=== PATIENT | male | born 1945 | race Caucasian/White ===

== ENCOUNTER 2021-04-29 09:52 | Inpatient (IN) | payer MEDICARE, OTHER ==
[~2021-04-29] VITALS: Ht 182.9 cm; Wt 72.8 kg
[2021-04-29] MEDS ORDERED: PANTOPRAZOLE 40 MG/10 ML VIAL INJ IV ONE (10:30)
[2021-04-29] MEDS ORDERED: ONDANSETRON HCL 4 MG/2 ML VIAL IV ONE (10:30)
[2021-04-29] MEDS ORDERED: MORPHINE SULFATE 4 MG/ML SYR/VIAL IV ONE (10:30)
[2021-04-29 11:39] LABS: Albumin 3.3 g/dL (3.4-5.0); BUN/Creatinine Ratio 13.9; Bilirubin, Total 0.6 mg/dL (0.2-1.0); Calcium 9.3 mg/dL (8.5-10.1)
[2021-04-29 13:31] LABS: Basophils # (auto) 0 10 ^3/uL (0-0.2); Basophils % (auto) 0.3 % (0.0-2.0); Eosinophils # (auto) 0 10 ^3/uL (0-0.8); Red Cell Distribution Width 15.1 % (11.8-14.3)
[2021-04-29 13:32] LABS: Eosinophils % (auto) 0.1 % (0.0-7.0); Hematocrit 49.6 % (41.0-53.0); Hemoglobin 16.6 g/dL (13.5-17.5); Lymphocytes # (auto) 0.3 10 ^3/uL (0.4-5.4); Lymphocytes % (auto) 2.3 % (10.0-50.0); Mean Corpuscular Hemoglobin 26.7 pg (28.0-32.0); Mean Corpuscular Hgb Conc. 33.5 g/dL (32.0-36.0); Mean Corpuscular Volume 79.8 fL (80.0-100.0); Monocytes # (auto) 0.6 10 ^3/uL (0-1.3); Monocytes % (auto) 5.3 % (0.0-12.0); Neutrophils # (auto) 10.3 10 ^3/uL (1.6-8.6); Red Blood Cells 6.21 10^6/uL (4.5-5.90); White Blood Cell 11.1 10^3/uL (4.4-10.8)
[2021-04-29] MEDS ORDERED: IOHEXOL 300 MG/ML 100ML BOTTLE IJ ONE (13:35)
[2021-04-29] MEDS ORDERED: metroNIDAZOLE 500MG/100ML 100 ML IV ONE (16:00)
[2021-04-29] MEDS ORDERED: PIPERACILLIN-TAZOB 3.375GM 100 ML IV ONE (16:00)
[2021-04-29 16:56] LABS: INR 1.06 (0.9-1.15); Partial Thromboplastin Time 26.8 sec (23.0-31.2)
[2021-04-29] MEDS ORDERED: MORPHINE SULFATE INJECTION 2 MG/ML SYRG IV PRN (17:00)
[2021-04-29] MEDS ORDERED: ONDANSETRON HCL 4 MG/2 ML VIAL IV PRN (17:00)
[2021-04-29] MEDS ORDERED: NITROGLYCERIN 0.4 MG SL TAB SL PRN (17:00)
[2021-04-29] MEDS ORDERED: metroNIDAZOLE 500MG/100ML 100 ML IV SCH (22:00)
[2021-04-29] MEDS: cefTRIAXone 1GM/50ML D5W 50 ML IV SCH (22:43)
[2021-04-29] MEDS: metroNIDAZOLE 500MG/100ML 100 ML IV SCH (22:44)
[2021-04-29] MEDS: POTASSIUM CHLORIDE 20 MEQ in D5W/LACTATED RINGERS 1,000 ML IV SCH (23:22)
[2021-04-30] MEDS: POTASSIUM CHLORIDE 20 MEQ in D5W/LACTATED RINGERS 1,000 ML IV SCH ×3 (02:36→22:48)
[2021-04-30] MEDS: metroNIDAZOLE 500MG/100ML 100 ML IV SCH ×3 (05:54→21:17)
[2021-04-30 06:06] LABS: Basophils # (auto) 0 10 ^3/uL (0-0.2); Basophils % (auto) 0.2 % (0.0-2.0); Eosinophils # (auto) 0 10 ^3/uL (0-0.8); Eosinophils % (auto) 0.2 % (0.0-7.0); Hematocrit 49.9 % (41.0-53.0); Lymphocytes # (auto) 0.8 10 ^3/uL (0.4-5.4); Lymphocytes % (auto) 5.9 % (10.0-50.0); Mean Corpuscular Hemoglobin 27.2 pg (28.0-32.0); Mean Corpuscular Hgb Conc. 34.1 g/dL (32.0-36.0); Mean Corpuscular Volume 79.7 fL (80.0-100.0); Monocytes # (auto) 1.2 10 ^3/uL (0-1.3); Monocytes % (auto) 9.3 % (0.0-12.0); Neutrophils % (auto) 84.4 % (37.0-80.0); Nucleated Red Blood Cells % 0.1 %; Red Blood Cells 6.26 10^6/uL (4.5-5.90); Red Cell Distribution Width 15.2 % (11.8-14.3)
[2021-04-30 06:23] LABS: Anion Gap 7 (5-15); BUN/Creatinine Ratio 21.3; Blood Urea Nitrogen 19 mg/dL (7-18); Calcium 8.5 mg/dL (8.5-10.1); Carbon Dioxide 21 mmol/L (21-32); Chloride 107 mmol/L (98-107); GFR African American 107 mL/min; GFR Non-African American 88 mL/min; Glucose 113 mg/dL (74-106); Potassium 4.6 mmol/L (3.5-5.1); Sodium 135 mmol/L (136-145)
[2021-04-30 06:27] LABS: Alanine Aminotransferase 14 U/L (16-61); Alkaline Phosphatase 78 U/L (45-117); Aspartate Aminotransferase 23 U/L (15-37); Bilirubin, Total 0.4 mg/dL (0.2-1.0); Total Protein 6.8 g/dL (6.4-8.2)
[2021-04-30] MEDS ORDERED: cefTRIAXone 1GM/50ML D5W 50 ML IV SCH (09:00)
[2021-04-30] MEDS: cefTRIAXone 1GM/50ML D5W 50 ML IV SCH (09:12)
[2021-04-30] MEDS: PANTOPRAZOLE 40 MG/10 ML VIAL INJ IV SCH (09:29)
[2021-04-30 13:19] VITALS: BP 135/75
[2021-04-30 16:48] VITALS: BP 134/78
[2021-04-30 22:00] VITALS: BP 131/91
[2021-05-01 05:00] VITALS: BP 122/73
[2021-05-01] MEDS: metroNIDAZOLE 500MG/100ML 100 ML IV SCH ×3 (05:28→21:12)
[2021-05-01 05:31] LABS: Basophils # (auto) 0 10 ^3/uL (0-0.2); Basophils % (auto) 0.4 % (0.0-2.0); Eosinophils # (auto) 0.1 10 ^3/uL (0-0.8); Eosinophils % (auto) 0.8 % (0.0-7.0); Hematocrit 42.8 % (41.0-53.0); Hemoglobin 14.5 g/dL (13.5-17.5); Lymphocytes # (auto) 1.1 10 ^3/uL (0.4-5.4); Mean Corpuscular Hemoglobin 27.1 pg (28.0-32.0); Mean Corpuscular Hgb Conc. 33.9 g/dL (32.0-36.0); Mean Corpuscular Volume 79.8 fL (80.0-100.0); Monocytes # (auto) 0.9 10 ^3/uL (0-1.3); Monocytes % (auto) 8.1 % (0.0-12.0); Neutrophils # (auto) 8.8 10 ^3/uL (1.6-8.6); Neutrophils % (auto) 80.7 % (37.0-80.0); Red Blood Cells 5.36 10^6/uL (4.5-5.90); Red Cell Distribution Width 15.4 % (11.8-14.3); White Blood Cell 10.9 10^3/uL (4.4-10.8)
[2021-05-01] MEDS: POTASSIUM CHLORIDE 20 MEQ in D5W/LACTATED RINGERS 1,000 ML IV SCH ×3 (05:31→20:17)
[2021-05-01 06:02] LABS: Potassium 3.9 mmol/L (3.5-5.1)
[2021-05-01 06:09] LABS: Albumin 2.6 g/dL (3.4-5.0); Bilirubin, Total 0.4 mg/dL (0.2-1.0); Calcium 8.5 mg/dL (8.5-10.1); Total Protein 5.9 g/dL (6.4-8.2)
[2021-05-01] MEDS: PANTOPRAZOLE 40 MG/10 ML VIAL INJ IV SCH (08:56)
[2021-05-01] MEDS: cefTRIAXone 1GM/50ML D5W 50 ML IV SCH (08:56)
[2021-05-01 09:00] VITALS: BP 129/63
[2021-05-01] MEDS ORDERED: EPINEPHrine HCL 1 MG/10 ML SYRG ONE (09:25)
[2021-05-01] MEDS ORDERED: ERGOCALCIFEROL 50,000 UNIT(1.25MG) CAP PO SCH (10:00)
[2021-05-01] MEDS ORDERED: BUPIVACAINE 0.25% INJ 50ML VIAL ONE (12:24)
[2021-05-01] MEDS ORDERED: LIDOCAINE 1% HCL (LOCAL ANESTH.) INJ 20ML MDV ONE (12:24)
[2021-05-01] MEDS ORDERED: ceFAZolin 1GM/50ML 100 ML IV ONE (12:26)
[2021-05-01] MEDS ORDERED: fentaNYL CITRATE 100 MCG/2 ML VL ONE (12:30)
[2021-05-01] MEDS ORDERED: MIDAZOLAM HCL 2MG/2ML 2ml VIAL (1mg/ml) ONE (12:31)
[2021-05-01] MEDS ORDERED: ROCURONIUM 10MG/ML 10ML VIAL IV ONE (12:31)
[2021-05-01] MEDS ORDERED: PROPOFOL 10 MG/ML 20 ML IV ONE (12:36)
[2021-05-01 13:00] VITALS: BP 125/70
[2021-05-01] MEDS ORDERED: NEOSTIGMINE 1 MG/ML INJ (10mg/10ML VIAL) ONE (14:15)
[2021-05-01] MEDS ORDERED: GLYCOPYRROLATE 0.2 MG/ML 1ML VIAL ONE (14:15)
[2021-05-01] MEDS ORDERED: ONDANSETRON HCL 4 MG/2 ML VIAL ONE (14:20)
[2021-05-01] MEDS ORDERED: HYDROmorphone HCL 2 MG/ML VL IV PRN (14:30)
[2021-05-01] MEDS ORDERED: ONDANSETRON HCL 4 MG/2 ML VIAL IV PRN (14:30)
[2021-05-01 16:09] VITALS: BP 120/68
[2021-05-01] MEDS: MORPHINE SULFATE INJECTION 2 MG/ML SYRG IV PRN (20:15)
[2021-05-01 22:00] VITALS: BP 119/51
[2021-05-02 05:00] VITALS: BP 120/68
[2021-05-02] MEDS: metroNIDAZOLE 500MG/100ML 100 ML IV SCH ×3 (05:30→21:56)
[2021-05-02] MEDS: cefTRIAXone 1GM/50ML D5W 50 ML IV SCH (08:46)
[2021-05-02 09:08] VITALS: BP 145/68
[2021-05-02] MEDS: MORPHINE SULFATE INJECTION 2 MG/ML SYRG IV PRN (10:30)
[2021-05-02 11:26] LABS: BUN/Creatinine Ratio 9.2; Potassium 3.9 mmol/L (3.5-5.1)
[2021-05-02 12:40] LABS: Basophils # (auto) 0 10 ^3/uL (0-0.2); Basophils % (auto) 0.6 % (0.0-2.0); Eosinophils # (auto) 0.1 10 ^3/uL (0-0.8); Eosinophils % (auto) 1.4 % (0.0-7.0); Hematocrit 39.4 % (41.0-53.0); Hemoglobin 13.5 g/dL (13.5-17.5); Lymphocytes # (auto) 0.8 10 ^3/uL (0.4-5.4); Lymphocytes % (auto) 11.2 % (10.0-50.0); Mean Corpuscular Hemoglobin 27.4 pg (28.0-32.0); Mean Corpuscular Hgb Conc. 34.3 g/dL (32.0-36.0); Monocytes # (auto) 0.6 10 ^3/uL (0-1.3); Monocytes % (auto) 9.1 % (0.0-12.0); Neutrophils # (auto) 5.5 10 ^3/uL (1.6-8.6); Neutrophils % (auto) 77.7 % (37.0-80.0); Red Blood Cells 4.93 10^6/uL (4.5-5.90); Red Cell Distribution Width 14.9 % (11.8-14.3); White Blood Cell 7.1 10^3/uL (4.4-10.8)
[2021-05-02 13:00] VITALS: BP 126/81
[2021-05-02 17:10] VITALS: BP 121/73
[2021-05-02] MEDS: POTASSIUM CHLORIDE 20 MEQ in D5W/LACTATED RINGERS 1,000 ML IV SCH (17:59)
[2021-05-02 22:00] VITALS: BP 139/73
[2021-05-03] MEDS: POTASSIUM CHLORIDE 20 MEQ in D5W/LACTATED RINGERS 1,000 ML IV SCH ×2 (01:32→13:32)
[2021-05-03 05:00] VITALS: BP 139/81
[2021-05-03 05:36] LABS: Basophils # (auto) 0 10 ^3/uL (0-0.2); Basophils % (auto) 0.8 % (0.0-2.0); Eosinophils # (auto) 0.2 10 ^3/uL (0-0.8); Eosinophils % (auto) 3.4 % (0.0-7.0); Hemoglobin 12.1 g/dL (13.5-17.5); Lymphocytes # (auto) 1.1 10 ^3/uL (0.4-5.4); Lymphocytes % (auto) 17.2 % (10.0-50.0); Mean Corpuscular Hemoglobin 27.6 pg (28.0-32.0); Mean Corpuscular Hgb Conc. 34.6 g/dL (32.0-36.0); Mean Corpuscular Volume 79.7 fL (80.0-100.0); Monocytes # (auto) 0.7 10 ^3/uL (0-1.3); Monocytes % (auto) 10.5 % (0.0-12.0); Neutrophils # (auto) 4.3 10 ^3/uL (1.6-8.6); Neutrophils % (auto) 68.1 % (37.0-80.0); Red Blood Cells 4.39 10^6/uL (4.5-5.90); Red Cell Distribution Width 14.9 % (11.8-14.3); White Blood Cell 6.3 10^3/uL (4.4-10.8)
[2021-05-03 05:55] LABS: Potassium 3.5 mmol/L (3.5-5.1)
[2021-05-03 06:00] LABS: BUN/Creatinine Ratio 9.5; Calcium 7.8 mg/dL (8.5-10.1)
[2021-05-03] MEDS: MORPHINE SULFATE INJECTION 2 MG/ML SYRG IV PRN ×3 (06:33→21:36)
[2021-05-03] MEDS: metroNIDAZOLE 500MG/100ML 100 ML IV SCH ×3 (06:33→21:36)
[2021-05-03 09:00] VITALS: BP 114/73
[2021-05-03] MEDS: cefTRIAXone 1GM/50ML D5W 50 ML IV SCH (09:49)
[2021-05-03] MEDS: PANTOPRAZOLE 40 MG/10 ML VIAL INJ IV SCH (09:49)
[2021-05-03 13:00] VITALS: BP 128/75
[2021-05-03 17:00] VITALS: BP 135/74
[2021-05-03 22:00] VITALS: BP 130/71
[2021-05-04 05:00] VITALS: BP 136/76
[2021-05-04] MEDS: metroNIDAZOLE 500MG/100ML 100 ML IV SCH ×3 (06:20→22:36)
[2021-05-04 06:44] LABS: Basophils # (auto) 0 10 ^3/uL (0-0.2); Basophils % (auto) 0.6 % (0.0-2.0); Eosinophils # (auto) 0.3 10 ^3/uL (0-0.8); Eosinophils % (auto) 4.6 % (0.0-7.0); Hemoglobin 12.2 g/dL (13.5-17.5); Mean Corpuscular Hemoglobin 27.5 pg (28.0-32.0); Mean Corpuscular Hgb Conc. 34.9 g/dL (32.0-36.0); Monocytes # (auto) 0.8 10 ^3/uL (0-1.3); Monocytes % (auto) 11.8 % (0.0-12.0); Neutrophils # (auto) 4.3 10 ^3/uL (1.6-8.6); Nucleated Red Blood Cells % 0.1 %; Red Blood Cells 4.43 10^6/uL (4.5-5.90); Red Cell Distribution Width 14.5 % (11.8-14.3); White Blood Cell 6.4 10^3/uL (4.4-10.8)
[2021-05-04 06:56] LABS: Albumin 2.3 g/dL (3.4-5.0); Potassium 3.5 mmol/L (3.5-5.1)
[2021-05-04 06:58] LABS: BUN/Creatinine Ratio 8.3
[2021-05-04 07:00] LABS: Bilirubin, Total 0.4 mg/dL (0.2-1.0); Total Protein 5.4 g/dL (6.4-8.2)
[2021-05-04] MEDS: MORPHINE SULFATE INJECTION 2 MG/ML SYRG IV PRN ×2 (08:04→22:36)
[2021-05-04] MEDS: cefTRIAXone 1GM/50ML D5W 50 ML IV SCH (08:04)
[2021-05-04 09:00] VITALS: BP 134/70
[2021-05-04] MEDS: PANTOPRAZOLE 40 MG/10 ML VIAL INJ IV SCH (09:00)
[2021-05-04] MEDS ORDERED: ACETAMINOPHEN 500 MG TAB PO PRN (12:15)
[2021-05-04 13:00] VITALS: BP 134/77
[2021-05-04 17:00] VITALS: BP 125/72
[2021-05-04 22:00] VITALS: BP 135/85
[2021-05-05 05:00] VITALS: BP 144/77
[2021-05-05] MEDS: metroNIDAZOLE 500MG/100ML 100 ML IV SCH ×2 (06:42→13:56)
[2021-05-05] MEDS: MORPHINE SULFATE INJECTION 2 MG/ML SYRG IV PRN (07:01)
[2021-05-05 09:00] VITALS: BP 120/74
[2021-05-05] MEDS: PANTOPRAZOLE 40 MG/10 ML VIAL INJ IV SCH (09:38)
[2021-05-05] MEDS: cefTRIAXone 1GM/50ML D5W 50 ML IV SCH (09:38)
== END 2021-05-05 16:10 | DRG 351 ==
LOC: EDSEX 09:52 → ER 09:52 → EDBD 09:52 → TELE 16:58 → TELE-WESTW 04-30 12:21
PROVIDERS: ADMIT Nurse Practitioner Acute Care; ATTEND Internal Medicine
PROC: 0YQ60ZZ Repair Left Inguinal Region, Open Approach (ICD-10-PCS; principal; 2021-05-01 12:29)
DX: K40.30 Unilateral inguinal hernia, with obstruction, without gangrene, not specified as recurrent (principal); K92.1 Melena; R73.9 Hyperglycemia, unspecified; I44.7 Left bundle-branch block, unspecified; I71.4 Abdominal aortic aneurysm, without rupture; F12.90 Cannabis use, unspecified, uncomplicated; F17.210 Nicotine dependence, cigarettes, uncomplicated; I25.10 Atherosclerotic heart disease of native coronary artery without angina pectoris; G89.18 Other acute postprocedural pain; J44.9 Chronic obstructive pulmonary disease, unspecified; K21.9 Gastro-esophageal reflux disease without esophagitis; I10 Essential (primary) hypertension; Z20.822 Contact with and (suspected) exposure to COVID-19; Z82.49 Family history of ischemic heart disease and other diseases of the circulatory system; Z71.6 Tobacco abuse counseling
CPT/HCPCS: 36415; 71045; 74177; 80048; 80053; 80061; 82270; 82306; 82378; 83036; 83690; 83735; 84443; 85025; 85610; 85730; 86850; 86900; 86901; 87426; 87493; 88302; 93005; 93306; 96365; 96375; 97110; 97116; 97163; 97530; C9113; G0378; J0690; J0696; J2001; J2250; J2405; J2543; J2704; J3490

== ENCOUNTER 2022-02-14 01:14 | Emergency (ER) | payer MEDICARE ==
[~2022-02-14] VITALS: Ht 182.9 cm; Wt 68.0 kg
[2022-02-14 02:01] LABS: Basophils # (auto) 0 10 ^3/uL (0-0.2); Basophils % (auto) 0.5 % (0.0-2.0); Eosinophils # (auto) 0 10 ^3/uL (0-0.8); Eosinophils % (auto) 0.4 % (0.0-7.0); Hematocrit 46.7 % (41.0-53.0); Hemoglobin 15.8 g/dL (13.5-17.5); Lymphocytes # (auto) 0.7 10 ^3/uL (0.4-5.4); Lymphocytes % (auto) 13.1 % (10.0-50.0); Mean Corpuscular Hemoglobin 27.1 pg (28.0-32.0); Mean Corpuscular Hgb Conc. 33.9 g/dL (32.0-36.0); Mean Corpuscular Volume 79.8 fL (80.0-100.0); Monocytes # (auto) 0.5 10 ^3/uL (0-1.3); Monocytes % (auto) 9.8 % (0.0-12.0); Neutrophils # (auto) 4.2 10 ^3/uL (1.6-8.6); Neutrophils % (auto) 76.2 % (37.0-80.0); Nucleated Red Blood Cells % 0.1 %; Red Blood Cells 5.85 10^6/uL (4.5-5.90); Red Cell Distribution Width 14.9 % (11.8-14.3); White Blood Cell 5.5 10^3/uL (4.4-10.8)
[2022-02-14] MEDS ORDERED: SODIUM CHLORIDE 0.9% 1,000 ML IV ONE (02:15)
[2022-02-14 02:21] LABS: Albumin 3.4 g/dL (3.4-5.0); BUN/Creatinine Ratio 16.3; Calcium 8.1 mg/dL (8.5-10.1); Potassium 4.2 mmol/L (3.5-5.1)
[2022-02-14 02:23] LABS: Bilirubin, Total 0.4 mg/dL (0.2-1.0); Total Protein 6.8 g/dL (6.4-8.2)
[2022-02-14 09:24] VITALS: BP 100/55
== END 2022-02-14 13:36 | disposition home or self-care (01) ==
LOC: ER 01:14 → EDBD 01:14 → ER 13:36
DX: R63.0 Anorexia (principal); R53.1 Weakness; F17.210 Nicotine dependence, cigarettes, uncomplicated; F12.10 Cannabis abuse, uncomplicated; R51.9 Headache, unspecified; Z68.20 Body mass index [BMI] 20.0-20.9, adult
CPT/HCPCS: 36415; 70450; 80053; 83605; 83690; 83880; 84484; 85025; 93005; 96360; 96361; 99285; J7030